=== PATIENT | female | born 1955 | race Caucasian/White ===

== ENCOUNTER 2020-06-04 12:18 | Outpatient (CLI) | payer MEDICARE, OTHER | END 2020-06-04 12:19 | disposition home or self-care (01) | LOC: CSHMAMMO 12:18 | PROVIDERS: ATTEND Clinical Nurse Specialist Medical-Surgical | DX: Z12.31 Encounter for screening mammogram for malignant neoplasm of breast (principal) | CPT/HCPCS: 77063; 77067 ==

== ENCOUNTER 2022-01-15 14:56 | Outpatient (CLI) | payer MEDICARE, OTHER | END 2022-01-15 14:57 | disposition home or self-care (01) | LOC: CSHULT 14:56 | PROVIDERS: ATTEND Advanced Practice Midwife | DX: M79.89 Other specified soft tissue disorders (principal) ==